=== PATIENT | female | born 1975 | race Caucasian/White ===

== ENCOUNTER → 2018-07-06 | Outpatient (CLI) | payer OTHER | LOC: BMCIMAGING 16:32 | PROVIDERS: ATTEND Family Medicine | DX: M79.604 Pain in right leg (principal) ==

== ENCOUNTER → 2018-09-10 | Outpatient (CLI) | payer OTHER ==
[~2018-09-10] MED LIST: GADOBUTROL 10 ML VIAL IVP ONE
== END ==
LOC: FIMAGING 11:34
PROVIDERS: ATTEND Surgery
DX: O92.6 Galactorrhea (principal); N63.23 Unspecified lump in the left breast, lower outer quadrant
CPT/HCPCS: A9585; C8908

== ENCOUNTER → 2018-10-05 | Outpatient (CLI) | payer OTHER | LOC: FIMAGING 08:27 | PROVIDERS: ATTEND Surgery | DX: N64.52 Nipple discharge (principal); R92.8 Other abnormal and inconclusive findings on diagnostic imaging of breast ==

== ENCOUNTER → 2018-10-22 | Day surgery (SDC) | payer OTHER ==
[~2018-10-22] MED LIST changes: -GADOBUTROL 10 ML VIAL IVP ONE; +IOPAMIDOL (ISOVUE 370) 100 ML BTL IV ONE
== END | disposition home or self-care (01) ==
LOC: FIMAGING 07:37
PROVIDERS: ATTEND Surgery
DX: O92.6 Galactorrhea (principal); Z53.09 Procedure and treatment not carried out because of other contraindication
CPT/HCPCS: Q9967